=== PATIENT | male | born 1965 | race Native Hawaiian/Other Pacific Islander ===

== ENCOUNTER → 2019-08-29 15:50 | Outpatient (CLI) | payer OTHER, SELFPAY ==
--- NOTE | 2019-08-29 16:00 | DI.ECHO.S_ITS ---
Echocardiogram Report + + :Name: MAREK YBARRA Study Date: 08/29/2019 Height: 67 in : :[facility] Weight: 143 lb : : Gender: Male BSA: 1.8 m2 : :: 1965 Age: 53 yrs BP: 136/88 mmHg: :Reason For Study: PALPITATIONS : : Performed By: Madhu Calixto : :Referring: ALEJANDRO DE LA PAZ : + + Interpretation Summary The ejection fraction is estimated to be 60-65%. The ascending aorta is mild-moderately enlarged. There is trace mitral regurgitation. There is trace tricuspid regurgitation. Procedure: A two-dimensional transthoracic echocardiogram with color flow and Doppler was performed. The study quality was technically good. There is no prior echocardiogram noted for this patient. The patient was in normal sinus rhythm during the exam. Left Ventricle: The left ventricle is normal in size. There is normal left ventricular wall thickness. The ejection fraction is estimated to be 60-65%. There are no focal wall motion abnormalities. Right Ventricle: The right ventricle is normal in size and function. Atria: The left atrium is moderately dilated. The right atrium is mildly dilated. The interatrial septum is intact with no evidence for an atrial septal defect. Mitral Valve: The mitral valve is normal in structure and function. There is trace mitral regurgitation. Aortic Valve: The aortic valve is trileaflet. The aortic valve opens well. No aortic regurgitation is present. Tricuspid Valve: The tricuspid valve is normal in structure and function. There is trace tricuspid regurgitation. The right ventricular systolic pressure is estimated to be at least 21 mmHg based on an estimated right atrial pressure of 3 mm Hg. Pulmonic Valve: The pulmonic valve is normal in structure and function. There is trace pulmonic regurgitation. Great Vessels: The aortic root is normal size. The ascending aorta is mildmoderately enlarged. The aortic arch is normal in size. The pulmonary artery is normal size. The IVC is of normal diameter and collapses greater than 50% with a sniff. This suggests a low right atrial pressure of 3 mm Hg. Pericardium/ Pleura There is no pericardial effusion. There is no pleural effusion. MMode/2D Measurements & Calculations LVIDd: 4.8 cm LVOT diam: 2.2 cm LVIDs: 3.3 cm Ao root diam: 3.3 cm FS: 31.5 % Aortic Jxn: 2.8 cm EPSS: 0.60 cm asc Aorta Diam: 4.3 cm IVSd: 0.81 cm Ao Arch Diam (Prox Trans): 2.9 cm LVPWd: 0.92 cm LV vargas. diameter/BSA (cm/m^2): 2.7 LV sys. diameter/BSA (cm/m^2): 1.9 LA dimension: 4.0 cm RA long axis: 4.6 cm LA A2 area: 22.4 cm2 RA area: 19.2 cm2 LA A4 area: 24.7 cm2 RA vol: 67.9 ml LA length (vol): 5.6 cm RA : 38.7 ml/m2 LA vol: 84.4 ml IVC diam: 0.98 cm LA vol index: 48.1 ml/m2 RVD1 (basal): 4.1 cm RVD2 (mid): 3.9 cm Doppler Measurements & Calculations Ao V2 max: 147.0 cm/sec LVOT Max Andrew: 125.4 cm/sec Ao V2 mean: 98.8 cm/sec LV V1 max P.3 mmHg Ao max P.6 mmHg LV V1 VTI: 27.3 cm Ao mean P.4 mmHg THERESE(I,D): 3.7 cm2 Ao V2 VTI: 29.0 cm THERESE(V,D): 3.3 cm2 sev ratio: 0.94 THERESE indexed to BSA (cm^2/m^2): 2.1 MV E max andrew: 71.0 cm/sec TR max andrew: 213.4 cm/sec MV A max andrew: 79.0 cm/sec TR max P.2 mmHg MV E/A: 0.90 PA V2 max: 89.3 cm/sec Med Peak E' Andrew: 7.2 cm/sec PA V2 mean: 65.4 cm/sec E/E' med: 9.8 PA mean P.9 mmHg Lat Peak E' Andrew: 9.5 cm/sec PA pr(Accel): 31.6 mmHg E/E' lat: 7.5 PA Accel Time: 0.09 sec E/e' average: 8.7 MV dec time: 0.17 sec SV(LVOT): 106.3 ml _ Reading Physician:08:41 AM
== END ==
PROVIDERS: Visit Provider Physician Assistant
DX: R00.2 Palpitations (principal); I77.89 Other specified disorders of arteries and arterioles
CPT/HCPCS: 93306

== ENCOUNTER → 2020-09-25 12:06 | Outpatient (CLI) | payer OTHER, SELFPAY ==
[2020-09-25 13:56] LABS: Hematocrit 33.7 % (41-53); Hemoglobin 11.2 g/dL (13.5-17.5); Mean Corpuscular HGB Conc 33.3 % (30-36); Mean Corpuscular Hemoglobin 33.7 PG (26-34); Mean Corpuscular Volume 101.2 fL (80-100); Platelet Count 197 X10^3/uL (150-400); Red Blood Cell Count 3.33 X10^6/uL (4.5-5.9); Red Cell Distribution Width 13.6 % (11.6-14.8)
[2020-09-25 14:16] LABS: Alanine Aminotransferase 160 IU/L (<50); Albumin 4.9 g/dL (3.5-5.0); Albumin Globulin Ratio 1.1 (1.0-2.8); Alkaline Phosphatase 154 U/L (38-126); Aspartate Aminotransferase 292 IU/L (17-59); BUN Creatinine Ratio 23.1 (6-22); Bilirubin Total 0.7 mg/dL (0.2-1.3); Blood Urea Nitrogen 39 mg/dL (9-20); Calcium 10.1 mg/dL (8.4-10.2); Carbon Dioxide 24 mmol/L (22-32); Chloride 100 mmol/L (98-107); Cholesterol 205 mg/dL (140-199); Estimated Glomerular Filt Rate 42.7 mL/min (>60); Globulin 4.3 g/dL (1.7-4.1); Glucose 80 mg/dL (70-100); HDL Cholesterol 83 mg/dL (40-60); HEMOLYSIS < 15 (0-50); LDL Cholesterol Calculated 70 mg/dL (<100); Potassium 4.3 mmol/L (3.4-5.1); Sodium 137 mmol/L (137-145); Total Protein 9.2 g/dL (6.3-8.2); Triglycerides 262 mg/dL (35-150)
[2020-09-25 16:29] LABS: Microalbumi Creatinin Ratio Ur 333.3 ug/mg CR (<30)
[2020-09-25 18:33] LABS: Folate 7.8 ng/mL (2.76-20.0)
== END ==
PROVIDERS: PCP Nurse Practitioner Family; Referring Provider Nurse Practitioner Family; Visit Provider Nurse Practitioner Family
DX: Z00.00 Encounter for general adult medical examination without abnormal findings (principal); I10 Essential (primary) hypertension; Z13.6 Encounter for screening for cardiovascular disorders; D53.9 Nutritional anemia, unspecified
CPT/HCPCS: 36415; 80053; 80061; 82043; 82570; 82746; 85027

== ENCOUNTER → 2020-11-16 11:32 | Outpatient (CLI) | payer OTHER, SELFPAY ==
[2020-11-16 12:27] LABS: Prothrombin Time 11.1 SECONDS (10.1-12.7)
[2020-11-16 12:41] LABS: Uric Acid 7.5 mg/dL (3.5-8.5)
[2020-11-16 14:45] LABS: Vitamin B12 Reflex MMA if <400 536 pg/mL (239-931)
[2020-11-18 08:36] LABS: Alpha-1-Globulin 0.2 g/dL (0.0-0.4); Alpha-2-Globulin 0.9 g/dL (0.4-1.0); Gamma Globulin 1.8 g/dL (0.4-1.8); Globulin Total 4.4 g/dL (2.2-3.9); Protein, Total 8.4 g/dL (6.0-8.5)
== END ==
PROVIDERS: PCP Nurse Practitioner Family; Referring Provider Nurse Practitioner Family; Visit Provider Nurse Practitioner Family
DX: R74.8 Abnormal levels of other serum enzymes (principal); D53.9 Nutritional anemia, unspecified; M10.9 Gout, unspecified; E88.09 Other disorders of plasma-protein metabolism, not elsewhere classified
CPT/HCPCS: 36415; 82607; 84155; 84165; 84550; 85610

== ENCOUNTER → 2021-01-04 12:25 | Outpatient (CLI) | payer OTHER, SELFPAY ==
[2021-01-04 13:07] LABS: Add Manual Diff / Slide Review NO; Basophils Absolute Auto 0 /uL (0-100); Basophils Percent Auto 1.1 % (0-2); Eosinophils Absolute Auto 200 /uL (0-450); Eosinophils Percent Auto 5.2 % (2-4); Hematocrit 37.7 % (41-53); Hemoglobin 12.8 g/dL (13.5-17.5); Lymphocytes Absolute Auto 2200 /uL (1100-4500); Lymphocytes Percent Auto 53.2 % (25-40); Mean Corpuscular HGB Conc 33.9 % (30-36); Mean Corpuscular Hemoglobin 33.9 PG (26-34); Mean Corpuscular Volume 99.8 fL (80-100); Monocytes Absolute Auto 400 /uL (0-900); Monocytes Percent Auto 10.8 % (3-14); Neutrophils Absolute Auto 1200 /uL (1500-7000); Neutrophils Percent Auto 29.7 % (50-75); Platelet Count 164 X10^3/uL (150-400); Red Blood Cell Count 3.77 X10^6/uL (4.5-5.9); Red Cell Distribution Width 14.1 % (11.6-14.8); White Blood Cell Count 4.1 X10^3/uL (4.5-11.0)
[2021-01-04 13:36] LABS: Alanine Aminotransferase 215 IU/L (<50); Albumin 4.7 g/dL (3.5-5.0); Albumin Globulin Ratio 1.3 (1.0-2.8); Alkaline Phosphatase 189 U/L (38-126); Aspartate Aminotransferase 654 IU/L (17-59); BUN Creatinine Ratio 10.2 (6-22); Bilirubin Total 0.8 mg/dL (0.2-1.3); Blood Urea Nitrogen 13 mg/dL (9-20); Calcium 9.7 mg/dL (8.4-10.2); Carbon Dioxide 25 mmol/L (22-32); Chloride 92 mmol/L (98-107); Estimated Glomerular Filt Rate 59.1 mL/min (>60); Globulin 3.5 g/dL (1.7-4.1); Glucose 166 mg/dL (70-100); HEMOLYSIS < 15 (0-50); Potassium 3.8 mmol/L (3.4-5.1); Sodium 135 mmol/L (137-145); Total Protein 8.2 g/dL (6.3-8.2); Uric Acid 6.9 mg/dL (3.5-8.5)
[2021-01-04 14:07] LABS: Prostate Specific Antigen Scrn 0.757 ng/mL (0.1-4.0)
[2021-01-04 16:20] LABS: Hemoglobin A1C% w Est Avg Glu 4.5 % (4.0-6.0)
== END ==
PROVIDERS: PCP Nurse Practitioner Family; Referring Provider Nurse Practitioner Family; Visit Provider Nurse Practitioner Family
DX: Z12.5 Encounter for screening for malignant neoplasm of prostate (principal); M1A.9XX0 Chronic gout, unspecified, without tophus (tophi); D53.9 Nutritional anemia, unspecified; I10 Essential (primary) hypertension; N18.32 Chronic kidney disease, stage 3b; R74.8 Abnormal levels of other serum enzymes
CPT/HCPCS: 36415; 80053; 83036; 84550; 85025; G0103

== ENCOUNTER → 2021-01-21 11:07 | Outpatient (CLI) | payer OTHER, SELFPAY ==
--- NOTE | 2021-01-21 11:08 | DI.US.S_ITS ---
PROCEDURE: US ABDOMEN COMPLETE INDICATIONS: elevated liver enzymes TECHNIQUE: Real-time scanning was performed of the abdominal and retroperitoneal organs, with image documentation. COMPARISON: None. FINDINGS: Liver: The liver is enlarged, measuring approximately 21 cm. There is diffuse increased hepatic echogenicity with coarse sonographic echotexture consistent with fatty infiltration. Gallbladder: No gallstones, gallbladder wall thickening, or pericholecystic fluid. Biliary ducts: Intrahepatic bile ducts are non-dilated. Extrahepatic bile duct caliber measures up to 0.6 cm. Pancreas: Visualized portions of the pancreas are sonographically normal. Spleen: Spleen is normal in size. Kidneys: Right kidney measures 10.4 cm long; left kidney measures 10.6 cm long. No hydronephrosis. Aorta: Visualized aorta is normal in caliber at less than 3 cm. Iliacs: Proximal common iliac arteries are normal in caliber at less than 2.5 cm. IVC: Intrahepatic inferior vena cava is patent. Miscellaneous: No free abdominal fluid. IMPRESSION: 1. Increased hepatic echogenicity compatible with steatosis. Dictated by: Stefan Feliciano M.D. on 01/23/2021 at 0:03 Approved by: Stefan Feliciano M.D. on 01/23/2021 at 0:05
== END ==
PROVIDERS: PCP Nurse Practitioner Family; Referring Provider Nurse Practitioner Family; Visit Provider Nurse Practitioner Family
DX: R74.8 Abnormal levels of other serum enzymes (principal)
CPT/HCPCS: 76700

== ENCOUNTER → 2021-06-23 10:48 | Outpatient (CLI) | payer OTHER, SELFPAY ==
[2021-06-23 12:08] LABS: Hematocrit 43.3 % (41-53); Hemoglobin 14.9 g/dL (13.5-17.5); Mean Corpuscular HGB Conc 34.5 % (30-36); Mean Corpuscular Hemoglobin 33.6 PG (26-34); Mean Corpuscular Volume 97.4 fL (80-100); Platelet Count 276 X10^3/uL (150-400); Red Blood Cell Count 4.44 X10^6/uL (4.5-5.9); Red Cell Distribution Width 13.6 % (11.6-14.8); White Blood Cell Count 5.6 X10^3/uL (4.5-11.0)
[2021-06-23 12:24] LABS: Alanine Aminotransferase 59 IU/L (<50); Albumin 4.4 g/dL (3.5-5.0); Albumin Globulin Ratio 1.2 (1.0-2.8); Alkaline Phosphatase 128 U/L (38-126); Aspartate Aminotransferase 108 IU/L (17-59); BUN Creatinine Ratio 21.4 (6-22); Bilirubin Total 0.8 mg/dL (0.2-1.3); Blood Urea Nitrogen 24 mg/dL (9-20); Calcium 9.2 mg/dL (8.4-10.2); Carbon Dioxide 27 mmol/L (22-32); Chloride 84 mmol/L (98-107); Estimated Glomerular Filt Rate > 60.0 mL/min (>60); Globulin 3.8 g/dL (1.7-4.1); Glucose 109 mg/dL (70-100); HEMOLYSIS 18 (0-50); Potassium 3.9 mmol/L (3.4-5.1); Sodium 123 mmol/L (137-145); Total Protein 8.2 g/dL (6.3-8.2)
[2021-06-23 13:53] LABS: TSH w/ Reflex to FT4 1.11 uIU/mL (0.47-4.68)
[2021-06-23 14:55] LABS: Microalbumin Urine Random 12.8 mg/dL (0-1.6)
[2021-06-23 14:59] LABS: Creatinine Urine Random 67.3 mg/dL; Microalbumi Creatinin Ratio Ur 190.1 ug/mg CR (<30)
== END ==
PROVIDERS: PCP Registered Nurse Diabetes Educator; Referring Provider Registered Nurse Diabetes Educator; Visit Provider Registered Nurse Diabetes Educator
DX: N18.32 Chronic kidney disease, stage 3b (principal); R74.8 Abnormal levels of other serum enzymes; D53.9 Nutritional anemia, unspecified
CPT/HCPCS: 36415; 80053; 82043; 82570; 84443; 85027

== ENCOUNTER → 2021-06-24 07:59 | Outpatient (CLI) | payer OTHER, SELFPAY ==
[2021-06-24 08:23] LABS: BUN Creatinine Ratio 21.7 (6-22); Blood Urea Nitrogen 25 mg/dL (9-20); Calcium 9.6 mg/dL (8.4-10.2); Carbon Dioxide 29 mmol/L (22-32); Chloride 87 mmol/L (98-107); Estimated Glomerular Filt Rate > 60.0 mL/min (>60); Glucose 108 mg/dL (70-100); HEMOLYSIS < 15 (0-50); Potassium 3.5 mmol/L (3.4-5.1); Sodium 127 mmol/L (137-145)
[2021-06-24 09:47] LABS: Uric Acid 12.5 mg/dL (3.5-8.5)
[2021-06-24 11:59] LABS: Sodium Urine Random 30 mmol/L (30-90)
[2021-06-25 11:58] LABS: Osmolality Urine 335 mOsmol/kg (.)
== END ==
PROVIDERS: PCP Registered Nurse Diabetes Educator; Referring Provider Registered Nurse Diabetes Educator; Visit Provider Registered Nurse Diabetes Educator
DX: E87.1 Hypo-osmolality and hyponatremia (principal)
CPT/HCPCS: 36415; 80048; 83935; 84300; 84550

== ENCOUNTER → 2021-12-08 14:26 | Outpatient (CLI) | payer OTHER, SELFPAY ==
[2021-12-08 16:12] LABS: Alanine Aminotransferase 47 IU/L (<50); Albumin 4.4 g/dL (3.5-5.0); Albumin Globulin Ratio 1.2 (1.0-2.8); Alkaline Phosphatase 93 U/L (38-126); Aspartate Aminotransferase 76 IU/L (17-59); Bilirubin Total 0.6 mg/dL (0.2-1.3); Blood Urea Nitrogen 18 mg/dL (9-20); Calcium 10.1 mg/dL (8.4-10.2); Carbon Dioxide 31 mmol/L (22-32); Chloride 99 mmol/L (98-107); Globulin 3.8 g/dL (1.7-4.1); Glucose 99 mg/dL (70-100); HEMOLYSIS < 15 (0-50); Potassium 4.3 mmol/L (3.4-5.1); Sodium 135 mmol/L (137-145); Total Protein 8.2 g/dL (6.3-8.2); Uric Acid 8.3 mg/dL (3.5-8.5)
== END ==
PROVIDERS: PCP Registered Nurse Diabetes Educator; Referring Provider Registered Nurse Diabetes Educator; Visit Provider Registered Nurse Diabetes Educator
DX: M1A.9XX0 Chronic gout, unspecified, without tophus (tophi) (principal); N18.32 Chronic kidney disease, stage 3b; R74.8 Abnormal levels of other serum enzymes
CPT/HCPCS: 36415; 80053; 84550

== ENCOUNTER → 2022-05-18 14:53 | Outpatient (CLI) | payer OTHER, SELFPAY ==
[2022-05-18 15:42] LABS: Alanine Aminotransferase 34 IU/L (<50); Albumin Globulin Ratio 1.2 (1.0-2.8); Alkaline Phosphatase 73 U/L (38-126); Aspartate Aminotransferase 57 IU/L (17-59); BUN Creatinine Ratio 13.3 (6-22); Bilirubin Total 0.8 mg/dL (0.2-1.3); Blood Urea Nitrogen 18 mg/dL (9-20); Calcium 9.1 mg/dL (8.4-10.2); Carbon Dioxide 27 mmol/L (22-32); Chloride 95 mmol/L (98-107); Estimated Glomerular Filt Rate > 60 mL/min (>60); Globulin 3.4 g/dL (1.7-4.1); Glucose 95 mg/dL (70-100); HEMOLYSIS < 15 (0-50); Sodium 132 mmol/L (137-145); Total Protein 7.4 g/dL (6.3-8.2)
== END ==
PROVIDERS: PCP Registered Nurse Diabetes Educator; Referring Provider Registered Nurse Diabetes Educator; Visit Provider Registered Nurse Diabetes Educator
DX: N18.32 Chronic kidney disease, stage 3b (principal); R74.8 Abnormal levels of other serum enzymes
CPT/HCPCS: 36415; 80053

== ENCOUNTER → 2022-07-18 11:05 | Outpatient (CLI) | payer OTHER, SELFPAY ==
[2022-07-18 12:15] LABS: Add Manual Diff / Slide Review NO; Basophils Absolute Auto 100 /uL (0-100); Eosinophils Absolute Auto 100 /uL (0-450); Eosinophils Percent Auto 2.8 % (2-4); Hematocrit 36.8 % (41-53); Hemoglobin 12.8 g/dL (13.5-17.5); Lymphocytes Absolute Auto 1500 /uL (1100-4500); Lymphocytes Percent Auto 38.5 % (25-40); Mean Corpuscular HGB Conc 34.8 % (30-36); Mean Corpuscular Hemoglobin 32.2 PG (26-34); Mean Corpuscular Volume 92.5 fL (80-100); Monocytes Absolute Auto 400 /uL (0-900); Monocytes Percent Auto 11.5 % (3-14); Neutrophils Absolute Auto 1700 /uL (1500-7000); Neutrophils Percent Auto 44.2 % (50-75); Platelet Count 259 X10^3/uL (150-400); Red Blood Cell Count 3.98 X10^6/uL (4.5-5.9); White Blood Cell Count 3.8 X10^3/uL (4.5-11.0)
[2022-07-18 12:31] LABS: Alanine Aminotransferase 54 IU/L (<50); Albumin 3.7 g/dL (3.5-5.0); Albumin Globulin Ratio 0.9 (1.0-2.8); Alkaline Phosphatase 84 U/L (38-126); Aspartate Aminotransferase 89 IU/L (17-59); BUN Creatinine Ratio 15.9 (6-22); Bilirubin Total 1.1 mg/dL (0.2-1.3); Blood Urea Nitrogen 20 mg/dL (9-20); Calcium 8.8 mg/dL (8.4-10.2); Carbon Dioxide 28 mmol/L (22-32); Chloride 98 mmol/L (98-107); Cholesterol 150 mg/dL (140-199); Estimated Glomerular Filt Rate > 60 mL/min (>60); Globulin 3.9 g/dL (1.7-4.1); Glucose 87 mg/dL (70-100); HDL Cholesterol 31 mg/dL (40-60); HEMOLYSIS < 15 (0-50); Sodium 136 mmol/L (137-145); Total Protein 7.6 g/dL (6.3-8.2); Uric Acid 8.3 mg/dL (3.5-8.5)
[2022-07-18 12:39] LABS: Triglycerides 644 mg/dL (35-150)
[2022-07-18 12:50] LABS: TSH w/ Reflex to FT4 0.79 uIU/mL (0.47-4.68)
[2022-07-18 14:22] LABS: Creatinine Urine Random 113.9 mg/dL
[2022-07-18 14:49] LABS: Microalbumi Creatinin Ratio Ur 853.3 ug/mg CR (<30); Microalbumin Urine Random 97.2 mg/dL (0-1.6)
== END ==
PROVIDERS: PCP Registered Nurse Diabetes Educator; Referring Provider Registered Nurse Diabetes Educator; Visit Provider Registered Nurse Diabetes Educator
DX: I10 Essential (primary) hypertension (principal); M1A.9XX0 Chronic gout, unspecified, without tophus (tophi); N18.32 Chronic kidney disease, stage 3b; R74.8 Abnormal levels of other serum enzymes
CPT/HCPCS: 36415; 80053; 80061; 82043; 82570; 84443; 84550; 85025

== ENCOUNTER → 2023-08-28 14:10 | Outpatient (CLI) | payer OTHER, SELFPAY ==
[2023-08-28 14:38] LABS: Add Manual Diff / Slide Review NO; Basophils Absolute Auto 200 /uL (0-100); Basophils Percent Auto 2.7 % (0-2); Eosinophils Absolute Auto 100 /uL (0-450); Eosinophils Percent Auto 1.3 % (2-4); Hematocrit 34.2 % (41-53); Hemoglobin 11.9 g/dL (13.5-17.5); Lymphocytes Absolute Auto 2500 /uL (1100-4500); Lymphocytes Percent Auto 41.6 % (25-40); Mean Corpuscular HGB Conc 34.8 % (30-36); Mean Corpuscular Hemoglobin 34.4 PG (26-34); Mean Corpuscular Volume 98.9 fL (80-100); Monocytes Absolute Auto 800 /uL (0-900); Monocytes Percent Auto 13.8 % (3-14); Neutrophils Absolute Auto 2400 /uL (1500-7000); Neutrophils Percent Auto 40.6 % (50-75); Platelet Count 280 X10^3/uL (150-400); Red Blood Cell Count 3.46 X10^6/uL (4.5-5.9); Red Cell Distribution Width 16.9 % (11.6-14.8); White Blood Cell Count 5.9 X10^3/uL (4.5-11.0)
[2023-08-28 15:32] LABS: Alanine Aminotransferase 69 IU/L (<50); Albumin 3.6 g/dL (3.5-5.0); Albumin Globulin Ratio 0.8 (1.0-2.8); Alkaline Phosphatase 115 U/L (38-126); Aspartate Aminotransferase 172 IU/L (17-59); BUN Creatinine Ratio 19.5 (6-22); Bilirubin Total 0.8 mg/dL (0.2-1.3); Blood Urea Nitrogen 24 mg/dL (9-20); Calcium 8.8 mg/dL (8.4-10.2); Carbon Dioxide 24 mmol/L (22-32); Chloride 101 mmol/L (98-107); Cholesterol 274 mg/dL (140-199); Estimated Glomerular Filt Rate > 60 mL/min (>60); Globulin 4.4 g/dL (1.7-4.1); Glucose 96 mg/dL (70-100); HDL Cholesterol 27 mg/dL (40-60); HEMOLYSIS < 15 (0-50); Potassium 3.9 mmol/L (3.4-5.1); Sodium 137 mmol/L (137-145); Uric Acid 7.9 mg/dL (3.5-8.5)
[2023-08-28 15:48] LABS: Triglycerides 1472 mg/dL (35-150)
[2023-08-28 16:11] LABS: Creatinine Urine Random 113.7 mg/dL
== END ==
PROVIDERS: PCP Registered Nurse Diabetes Educator; Referring Provider Registered Nurse Diabetes Educator; Visit Provider Registered Nurse Diabetes Educator
DX: D53.9 Nutritional anemia, unspecified (principal); R74.8 Abnormal levels of other serum enzymes; I10 Essential (primary) hypertension; M10.9 Gout, unspecified; Z51.81 Encounter for therapeutic drug level monitoring
CPT/HCPCS: 36415; 80053; 80061; 82043; 82570; 84443; 84550; 85025

== ENCOUNTER → 2023-09-11 13:14 | Outpatient (CLI) | payer OTHER, SELFPAY ==
[2023-09-11 14:17] LABS: Add Manual Diff / Slide Review NO; Basophils Absolute Auto 100 /uL (0-100); Basophils Percent Auto 1.4 % (0-2); Eosinophils Absolute Auto 100 /uL (0-450); Hematocrit 34.3 % (41-53); Hemoglobin 11.9 g/dL (13.5-17.5); Lymphocytes Absolute Auto 3200 /uL (1100-4500); Lymphocytes Percent Auto 54.9 % (25-40); Mean Corpuscular HGB Conc 34.8 % (30-36); Mean Corpuscular Hemoglobin 35.4 PG (26-34); Mean Corpuscular Volume 101.8 fL (80-100); Monocytes Absolute Auto 700 /uL (0-900); Monocytes Percent Auto 11.5 % (3-14); Neutrophils Absolute Auto 1700 /uL (1500-7000); Neutrophils Percent Auto 30.2 % (50-75); Platelet Count 169 X10^3/uL (150-400); Red Blood Cell Count 3.37 X10^6/uL (4.5-5.9); Red Cell Distribution Width 15.5 % (11.6-14.8); White Blood Cell Count 5.8 X10^3/uL (4.5-11.0)
[2023-09-11 14:44] LABS: Alanine Aminotransferase 76 IU/L (<50); Albumin 3.6 g/dL (3.5-5.0); Albumin Globulin Ratio 0.8 (1.0-2.8); Alkaline Phosphatase 121 U/L (38-126); Aspartate Aminotransferase 194 IU/L (17-59); BUN Creatinine Ratio 14.2 (6-22); Bilirubin Total 1.5 mg/dL (0.2-1.3); Blood Urea Nitrogen 17 mg/dL (9-20); Calcium 8.8 mg/dL (8.4-10.2); Carbon Dioxide 26 mmol/L (22-32); Chloride 99 mmol/L (98-107); Cholesterol 253 mg/dL (140-199); Estimated Glomerular Filt Rate > 60 mL/min (>60); Globulin 4.3 g/dL (1.7-4.1); Glucose 92 mg/dL (70-100); HDL Cholesterol 18 mg/dL (40-60); HEMOLYSIS < 15 (0-50); Potassium 3.6 mmol/L (3.4-5.1); Sodium 135 mmol/L (137-145); Total Protein 7.9 g/dL (6.3-8.2); Uric Acid 7.5 mg/dL (3.5-8.5)
[2023-09-11 14:57] LABS: Triglycerides 1258 mg/dL (35-150)
[2023-09-11 16:43] LABS: Creatinine Urine Random 230.4 mg/dL
[2023-09-11 17:31] LABS: Microalbumi Creatinin Ratio Ur 398.8 ug/mg CR (<30); Microalbumin Urine Random 91.9 mg/dL (0-1.6)
== END ==
PROVIDERS: PCP Registered Nurse Diabetes Educator; Referring Provider Registered Nurse Diabetes Educator; Visit Provider Registered Nurse Diabetes Educator
DX: R73.01 Impaired fasting glucose (principal); N18.32 Chronic kidney disease, stage 3b; R74.8 Abnormal levels of other serum enzymes; D53.9 Nutritional anemia, unspecified; M1A.9XX0 Chronic gout, unspecified, without tophus (tophi); I10 Essential (primary) hypertension
CPT/HCPCS: 36415; 80053; 80061; 82043; 82570; 84550; 85025

== ENCOUNTER → 2023-10-07 11:48 | Outpatient (CLI) | payer OTHER, SELFPAY ==
[2023-10-07 13:16] LABS: Alanine Aminotransferase 80 IU/L (<50); Albumin 3.8 g/dL (3.5-5.0); Albumin Globulin Ratio 0.9 (1.0-2.8); Alkaline Phosphatase 113 U/L (38-126); Aspartate Aminotransferase 134 IU/L (17-59); Bilirubin Total 0.8 mg/dL (0.2-1.3); Bilirubin Unconjugated 0.3 mg/dL (0.0-1.1); Cholesterol 162 mg/dL (140-199); Globulin 4.3 g/dL (1.7-4.1); HDL Cholesterol 40 mg/dL (40-60); HEMOLYSIS < 15 (0-50); LDL Cholesterol Calculated 55 mg/dL (<100); Total Protein 8.1 g/dL (6.3-8.2); Triglycerides 335 mg/dL (35-150)
== END ==
PROVIDERS: PCP Registered Nurse Diabetes Educator; Referring Provider Registered Nurse Diabetes Educator; Visit Provider Registered Nurse Diabetes Educator
DX: R74.8 Abnormal levels of other serum enzymes (principal); E78.5 Hyperlipidemia, unspecified
CPT/HCPCS: 36415; 80061; 80076

== ENCOUNTER → 2024-08-22 11:55 | Outpatient (CLI) | payer OTHER, SELFPAY ==
[2024-08-22 13:00] LABS: Add Manual Diff / Slide Review NO; Basophils Absolute Auto 100 /uL (0-100); Basophils Percent Auto 1.4 % (0-2); Eosinophils Absolute Auto 100 /uL (0-450); Hematocrit 32.1 % (41-53); Hemoglobin 11.1 g/dL (13.5-17.5); Lymphocytes Absolute Auto 1900 /uL (1100-4500); Mean Corpuscular HGB Conc 34.6 % (30-36); Mean Corpuscular Hemoglobin 32.9 PG (26-34); Mean Corpuscular Volume 95.2 fL (80-100); Monocytes Absolute Auto 700 /uL (0-900); Monocytes Percent Auto 12.1 % (3-14); Neutrophils Absolute Auto 2800 /uL (1500-7000); Neutrophils Percent Auto 50.5 % (50-75); Platelet Count 160 X10^3/uL (150-400); Red Blood Cell Count 3.37 X10^6/uL (4.5-5.9); Red Cell Distribution Width 16.8 % (11.6-14.8); White Blood Cell Count 5.5 X10^3/uL (4.5-11.0)
[2024-08-22 13:24] LABS: Alanine Aminotransferase 135 IU/L (<50); Albumin 3.4 g/dL (3.5-5.0); Albumin Globulin Ratio 0.8 (1.0-2.8); Alkaline Phosphatase 188 U/L (38-126); Aspartate Aminotransferase 346 IU/L (17-59); BUN Creatinine Ratio 12.2 (6-22); Bilirubin Total 3.5 mg/dL (0.2-1.3); Blood Urea Nitrogen 22 mg/dL (9-20); Calcium 8.7 mg/dL (8.4-10.2); Carbon Dioxide 26 mmol/L (22-32); Chloride 97 mmol/L (98-107); Cholesterol 164 mg/dL (140-199); Estimated Glomerular Filt Rate 43 mL/min (>60); Globulin 4.1 g/dL (1.7-4.1); Glucose 115 mg/dL (70-100); HDL Cholesterol 20 mg/dL (40-60); HEMOLYSIS < 15 (0-50); LDL Cholesterol Calculated 99 mg/dL (<100); Potassium 3.6 mmol/L (3.4-5.1); Sodium 132 mmol/L (137-145); Total Protein 7.5 g/dL (6.3-8.2); Triglycerides 223 mg/dL (35-150)
[2024-08-22 13:52] LABS: TSH w/ Reflex to FT4 2.28 uIU/mL (0.47-4.68)
[2024-08-22 14:50] LABS: Creatinine Urine Random 328.13 mg/dL
[2024-08-22 15:10] LABS: Microalbumin Urine Random 70.9 mg/dL (0-1.6)
== END ==
PROVIDERS: PCP Registered Nurse Diabetes Educator; Referring Provider Registered Nurse Diabetes Educator; Visit Provider Registered Nurse Diabetes Educator
DX: D53.9 Nutritional anemia, unspecified (principal); R74.8 Abnormal levels of other serum enzymes; Z51.81 Encounter for therapeutic drug level monitoring; N18.32 Chronic kidney disease, stage 3b; R73.01 Impaired fasting glucose; E78.1 Pure hyperglyceridemia; M1A.9XX0 Chronic gout, unspecified, without tophus (tophi); I12.9 Hypertensive chronic kidney disease with stage 1 through stage 4 chronic kidney disease, or unspecified chronic kidney disease
CPT/HCPCS: 36415; 80053; 80061; 82043; 82570; 84443; 84550; 85025

== ENCOUNTER → 2024-09-21 07:40 | Outpatient (CLI) | payer OTHER, SELFPAY ==
[2024-09-21 08:55] LABS: Alanine Aminotransferase 72 IU/L (<50); Albumin 4.2 g/dL (3.5-5.0); Albumin Globulin Ratio 0.9 (1.0-2.8); Alkaline Phosphatase 181 U/L (38-126); Aspartate Aminotransferase 143 IU/L (17-59); BUN Creatinine Ratio 15.5 (6-22); Bilirubin Total 0.8 mg/dL (0.2-1.3); Blood Urea Nitrogen 26 mg/dL (9-20); Calcium 10.4 mg/dL (8.4-10.2); Carbon Dioxide 24 mmol/L (22-32); Chloride 104 mmol/L (98-107); Estimated Glomerular Filt Rate 47 mL/min (>60); Globulin 4.8 g/dL (1.7-4.1); Glucose 99 mg/dL (70-100); HEMOLYSIS < 15 (0-50); Potassium 4.3 mmol/L (3.4-5.1); Sodium 137 mmol/L (137-145); Uric Acid 9.9 mg/dL (3.5-8.5)
== END ==
PROVIDERS: PCP Registered Nurse Diabetes Educator; Referring Provider Registered Nurse Diabetes Educator; Visit Provider Registered Nurse Diabetes Educator
DX: N18.32 Chronic kidney disease, stage 3b (principal); R74.8 Abnormal levels of other serum enzymes; M1A.9XX0 Chronic gout, unspecified, without tophus (tophi)
CPT/HCPCS: 36415; 80053; 84550

== ENCOUNTER → 2024-11-16 07:57 | Outpatient (CLI) | payer OTHER, SELFPAY ==
[2024-11-16 09:09] LABS: Add Manual Diff / Slide Review NO; Basophils Absolute Auto 0 /uL (0-100); Basophils Percent Auto 0.8 % (0-2); Eosinophils Absolute Auto 400 /uL (0-450); Eosinophils Percent Auto 7.1 % (2-4); Hematocrit 33.3 % (41-53); Lymphocytes Absolute Auto 2600 /uL (1100-4500); Lymphocytes Percent Auto 53.1 % (25-40); Mean Corpuscular HGB Conc 33.2 % (30-36); Mean Corpuscular Hemoglobin 30.5 PG (26-34); Mean Corpuscular Volume 91.9 fL (80-100); Monocytes Absolute Auto 900 /uL (0-900); Monocytes Percent Auto 18.9 % (3-14); Neutrophils Absolute Auto 1000 /uL (1500-7000); Neutrophils Percent Auto 20.1 % (50-75); Platelet Count 243 X10^3/uL (150-400); Red Blood Cell Count 3.62 X10^6/uL (4.5-5.9); Red Cell Distribution Width 15.2 % (11.6-14.8)
[2024-11-16 09:28] LABS: Alanine Aminotransferase 62 IU/L (<50); Alkaline Phosphatase 139 U/L (38-126); Aspartate Aminotransferase 116 IU/L (17-59); BUN Creatinine Ratio 9.6 (6-22); Bilirubin Total 0.7 mg/dL (0.2-1.3); Blood Urea Nitrogen 16 mg/dL (9-20); Calcium 9.8 mg/dL (8.4-10.2); Carbon Dioxide 28 mmol/L (22-32); Chloride 99 mmol/L (98-107); Estimated Glomerular Filt Rate 47 mL/min (>60); Globulin 3.9 g/dL (1.7-4.1); Glucose 106 mg/dL (70-100); HEMOLYSIS < 15 (0-50); Potassium 3.8 mmol/L (3.4-5.1); Sodium 135 mmol/L (137-145); Total Protein 7.9 g/dL (6.3-8.2); Uric Acid 9.5 mg/dL (3.5-8.5)
== END ==
PROVIDERS: PCP Registered Nurse Diabetes Educator; Referring Provider Registered Nurse Diabetes Educator; Visit Provider Registered Nurse Diabetes Educator
DX: N18.32 Chronic kidney disease, stage 3b (principal); R74.8 Abnormal levels of other serum enzymes; D53.9 Nutritional anemia, unspecified; M1A.9XX0 Chronic gout, unspecified, without tophus (tophi)
CPT/HCPCS: 36415; 80053; 84550; 85025

== ENCOUNTER → 2025-05-16 14:28 | Outpatient (CLI) | payer OTHER, SELFPAY ==
[2025-05-16 15:40] LABS: Blood Urea Nitrogen 26 mg/dL (9-20); Calcium 9.8 mg/dL (8.4-10.2); Carbon Dioxide 24 mmol/L (22-32); Chloride 96 mmol/L (98-107); Estimated Glomerular Filt Rate 37 mL/min (>60); Glucose 116 mg/dL (70-99); HEMOLYSIS < 15 (0-50); Potassium 4.3 mmol/L (3.4-5.1); Sodium 132 mmol/L (137-145); Uric Acid 6.9 mg/dL (3.5-8.5)
[2025-05-16 16:47] LABS: Microalbumi Creatinin Ratio Ur 225.0 ug/mg CR (<30)
== END ==
PROVIDERS: PCP Registered Nurse Diabetes Educator; Referring Provider Registered Nurse Diabetes Educator; Visit Provider Registered Nurse Diabetes Educator
DX: N18.30 Chronic kidney disease, stage 3 unspecified (principal); M10.9 Gout, unspecified; I10 Essential (primary) hypertension
CPT/HCPCS: 36415; 80048; 82043; 82570; 84550

== ENCOUNTER → 2025-07-11 06:51 | Outpatient (CLI) | payer OTHER, SELFPAY ==
[2025-07-11 08:27] LABS: Alanine Aminotransferase 39 IU/L (<50); Albumin 4.0 g/dL (3.5-5.0); Albumin Globulin Ratio 1.1 (1.0-2.8); Alkaline Phosphatase 99 U/L (38-126); Blood Urea Nitrogen 24 mg/dL (9-20); Calcium 9.7 mg/dL (8.4-10.2); Carbon Dioxide 27 mmol/L (22-32); Chloride 91 mmol/L (98-107); Estimated Glomerular Filt Rate 44 mL/min (>60); Globulin 3.8 g/dL (1.7-4.1); Glucose 89 mg/dL (70-99); HEMOLYSIS < 15 (0-50); Potassium 4.1 mmol/L (3.4-5.1); Sodium 127 mmol/L (137-145); Total Protein 7.8 g/dL (6.3-8.2)
[2025-07-11 12:03] LABS: Cholesterol 150 mg/dL (140-199); HDL Cholesterol 47 mg/dL (40-60); Triglycerides 85 mg/dL (35-150); Uric Acid 7.6 mg/dL (3.5-8.5)
[2025-07-11 12:34] LABS: TSH w/ Reflex to FT4 1.83 uIU/mL (0.47-4.68)
== END ==
LOC: LAB 06:52
PROVIDERS: PCP Registered Nurse Diabetes Educator; Referring Provider Registered Nurse Diabetes Educator; Visit Provider Registered Nurse Diabetes Educator
DX: N18.32 Chronic kidney disease, stage 3b (principal); R74.8 Abnormal levels of other serum enzymes; R80.9 Proteinuria, unspecified
CPT/HCPCS: 36415; 80053; 80061; 84443; 84550

== ENCOUNTER → 2025-07-22 12:43 | Outpatient (CLI) | payer OTHER, SELFPAY ==
[2025-07-22 13:47] LABS: Add Manual Diff / Slide Review NO; Hematocrit 33.1 % (41-53); Hemoglobin 11.1 g/dL (13.5-17.5); Lymphocytes Absolute Auto 2100 /uL (1100-4500); Mean Corpuscular HGB Conc 33.5 % (30-36); Mean Corpuscular Hemoglobin 28.7 PG (26-34); Mean Corpuscular Volume 85.6 fL (80-100); Platelet Count 322 X10^3/uL (150-400)
[2025-07-22 16:39] LABS: Microalbumi Creatinin Ratio Ur 1530.0 ug/mg CR (<30)
== END ==
PROVIDERS: PCP Registered Nurse Diabetes Educator; Referring Provider Registered Nurse Diabetes Educator; Visit Provider Registered Nurse Diabetes Educator
DX: R80.9 Proteinuria, unspecified (principal); E78.1 Pure hyperglyceridemia; R73.01 Impaired fasting glucose; E88.09 Other disorders of plasma-protein metabolism, not elsewhere classified; I10 Essential (primary) hypertension; M1A.9XX0 Chronic gout, unspecified, without tophus (tophi); N18.32 Chronic kidney disease, stage 3b; R74.8 Abnormal levels of other serum enzymes
CPT/HCPCS: 36415; 82043; 82570; 85025

== ENCOUNTER → 2025-09-17 13:24 | Outpatient (CLI) | payer OTHER, SELFPAY ==
[2025-09-17 14:55] LABS: Alanine Aminotransferase 46 IU/L (<50); Albumin 4.4 g/dL (3.5-5.0); Albumin Globulin Ratio 1.1 (1.0-2.8); Alkaline Phosphatase 120 U/L (38-126); Blood Urea Nitrogen 23 mg/dL (9-20); Calcium 9.6 mg/dL (8.4-10.2); Carbon Dioxide 23 mmol/L (22-32); Chloride 96 mmol/L (98-107); Estimated Glomerular Filt Rate 48 mL/min (>60); Globulin 3.9 g/dL (1.7-4.1); Glucose 88 mg/dL (70-99); HEMOLYSIS < 15 (0-50); Potassium 4.0 mmol/L (3.4-5.1); Sodium 132 mmol/L (137-145); Total Protein 8.3 g/dL (6.3-8.2); Uric Acid 5.2 mg/dL (3.5-8.5)
[2025-09-17 16:11] LABS: Microalbumi Creatinin Ratio Ur 1024.0 ug/mg CR (<30)
== END ==
PROVIDERS: PCP Registered Nurse Diabetes Educator; Referring Provider Registered Nurse Diabetes Educator; Visit Provider Registered Nurse Diabetes Educator
DX: N18.32 Chronic kidney disease, stage 3b (principal); R74.8 Abnormal levels of other serum enzymes; M1A.9XX0 Chronic gout, unspecified, without tophus (tophi); R80.9 Proteinuria, unspecified
CPT/HCPCS: 36415; 80053; 82043; 82570; 84550